=== PATIENT | male | born 1970 | race Caucasian/White ===

== ENCOUNTER 2024-07-22 03:20 | Emergency (ER) | payer SELFPAY ==
[2024-07-22 03:24] VITALS: BP 123/94
[2024-07-22 03:34] VITALS: BMI 22.7
[2024-07-22 05:16] LABS: Amphetamines Negative (Negative); Barbiturates Negative (Negative); Benzodiazepines Negative (Negative); Buprenorphine Negative (Negative); Cocaine Negative (Negative); Marijuana Negative (Negative); Methadone Negative (Negative); Methamphetamines Negative (Negative); Opiates Negative (Negative); Phencyclidine Negative (Negative); Tricyclic Antidepressants Negative (Negative)
--- NOTE | 2024-07-22 07:07 | ED.GENMED ---
History of Present Illness
General
Chief Complaint: Crisis Evaluation
Time Seen by Provider: 07/22/24 06:26
History of Present Illness
History of Present Illness:
54-year-old male with history of depression presents the emergency department for evaluation of suicidal ideation. He apparently threatened to shoot himself at which time police were called, arrives voluntarily and willing to sign himself in for
inpatient ental health treatment. When questioned about why he did this he states 'I am just tired of my job and my girlfriend'. He has access to weapons at home and states that he attempted to hang himself several weeks ago. He currently denies
any other complaints.
Review of Systems
Review of Systems
Allergies reviewed?: Yes
All Other Systems: ROS reviewed and negative except as documented in HPI and ROS
Phy Exam
Physical Exam
Physical Exam:
GEN: Well appearing, NAD, WDWN
HEENT: Oral mucosa moist, no scleral icterus
Cardiac: Regular rate
Lung: No respiratory distress, no tachypnea
MSK: No gross deformity or injuries
Skin: Good color, no pallor or jaundice, no rashes
Neuro: AO x3, moves all extremities freely
Psych: Calm, cooperative, not responding to internal stimuli
Course
Orders/Labs/Results
Orders:
Orders
07/22/24 03:52
1:1 Observation - Suicide/ Violent Behavior As Directed
Crisis Consult Urgent
Reason for Consult: suicidal ideation
07/22/24 04:56
Urine Drug Abuse Screen Urgent
Date Specimen was Collected: 07/22/24
Time Specimen was Collected: 04:54
Vital Signs
Initial and Last Documented VS:
Initial Vital Signs
Pulse Resp BP Pulse Ox
76 18 123/94 96
07/22/24 03:24 07/22/24 03:24 07/22/24 03:24 07/22/24 03:24
Last Documented Vital Signs
Pulse Resp BP Pulse Ox
76 18 123/94 96
07/22/24 03:24 07/22/24 03:24 07/22/24 03:24 07/22/24 03:24
MDM/Problems Addressed
MDM/Problems Addressed:
Seen by crisis and signed in voluntarily, awaiting transport to psychiatric facility
*Critical Care Note
Total Time (30-74mins, 75-104mins- exclusive of procedures): Not Applicable
ED Attending Note
-
Portions of this chart may have been created with voice recognition software.� Occasional wrong word or��sound alike� substitutions may have occurred due to the inherent limitations of voice recognition software.
Discharge Plan
Departure
Patient Disposition: Psych Facility
Date of Disposition: 07/22/24
Time of Disposition: 07:08
Discharge Problem:
Depression with suicidal ideation
Referrals:
NONE,* [Family Provider] -
Hospital Transfer
Other hospital: [facility]
Interventions
Interventions:
*Risk Screen - Suicide Last Done: 07/22/24 03:34
*General Assessment Last Done: 07/22/24 03:34
*Neglect/Abuse Screening Last Done: 07/22/24 03:34
*ED- Fall Risk Assessment Last Done: 07/22/24 03:34
*ED COVID-19 Vaccine History Last Done: 07/22/24 03:34
*Nursing Disposition Last Done: 07/22/24 11:16
ED-Psychological Assessment Last Done: 07/22/24 03:34
Discharge Date and Time
Discharge Date/Time: 07/22/24 11:23
Print Language: [place]ET[place]
== END 2024-07-22 11:23 ==
LOC: EMR 03:20
PROVIDERS: Student in an Organized Health Care Education/Training Program; EMERGENCY PHYSICIAN Emergency Medicine
DX: F32.A Depression, unspecified (principal); R45.851 Suicidal ideations
CPT/HCPCS: 99285; 80306